=== PATIENT | female | born 1990 | race Caucasian/White ===

== ENCOUNTER 2023-07-22 17:51 | Emergency (ER) | payer OTHER, MEDICAID, SELFPAY ==
[2023-07-22 17:57] VITALS: BP 105/64; PULSE 86; RESP 18; TEMP 36.5; O2SAT 98; BMI 37.7
--- NOTE | 2023-07-22 18:30 | DI.CT.S_ITS ---
PROCEDURE: CT HEAD/BRAIN WO CON INDICATIONS: headache on lovenox TECHNIQUE: Noncontrast 4.5 mm thick angled axial sections acquired from the foramen magnum to the vertex, with coronal and sagittal reformats. For radiation dose reduction, the following was used: automated exposure control, adjustment of mA and/or kV according to patient size. COMPARISON: None. FINDINGS: CSF spaces: Basal cisterns are patent. No extra-axial fluid collections. Ventricles are normal in size and shape. Brain: No midline shift. No intracranial masses or hemorrhage. Mir-white matter interface is normal. Skull and face: Calvarium and visualized facial bones are intact, without suspicious lesions. Sinuses: Visualized sinuses and mastoids are clear. IMPRESSION: No intracranial hemorrhage or other acute intracranial abnormality. Dictated by: Roque Mcclain M.D. on 07/22/2023 at 19:02 Approved by: Roque Mcclain M.D. on 07/22/2023 at 19:05
--- NOTE | 2023-07-22 18:36 | ED.RECABL ---
HPI - Recheck/Abnormal Lab/Rx General Chief Complaint: Recheck/Abnormal Lab/Rx Stated Complaint: lipidema treatment in [place] follow up Time Seen by Provider: 07/22/23 18:02 Source: patient Mode of arrival: Ambulatory History of Present Illness HPI narrative: Patient 33-year-old female history of an arrhythmia on atenolol presents today with mild headache and wanting her blood rechecked. 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 She went to [place] to have liposuction a special liposuction was done last week on July 15. She then had a complication with bleeding afterwards requiring a blood transfusion. She reports that she had a CT. During that time she had a severe headache as well. She was sent home with Lovenox injections which she was told to take 2 hours before she got on the plane and then for a couple days after. This morning she took another injection and then had a headache no nausea no vomiting no numbness no tingling or weakness. She reports that the headache has slowly improved since. She is taking cephalosporin antibiotic he denies any fever she did short of breath with exertion. Related Data Home Medications Medication Instructions Recorded Confirmed cefuroxime axetil 500 mg tablet 500 mg PO BID 07/22/23 07/22/23 Allergies Allergy/AdvReac Type Severity Reaction Status Date / Time No Known Drug Allergies Allergy Verified 07/22/23 17:57 Review of Systems Review of Systems ROS Unobtainable: All systems reviewed & are unremarkable except as noted in HPI and below Patient History Social History Smoking Status: Current every day smoker Smoking Status: Current every day smoker tobacco type: vaping Substance Use Type: does not use Exam Initial Vital Signs Initial Vital Signs: Vital Signs Temperature 97.7 F 07/22/23 17:57 Pulse Rate 86 07/22/23 17:57 Respiratory Rate 18 07/22/23 17:57 Blood Pressure 105/64 07/22/23 17:57 Pulse Oximetry 98 07/22/23 17:57 Oxygen Delivery Method Room Air 07/22/23 17:57 GENERAL: Alert well-appearing 33-year-old female mildly pale HEENT: Head atraumatic,EOMI, pupils reactive, face symmetric, moist mucous membranes CARDIOVASCULAR: Regular rate and rhythm without murmurs, rubs or gallops. RESPIRATORY: Breath sounds equal bilaterally, no wheezes rales or rhonchi. ABDOMEN: Soft, nontender. Normoactive bowel sounds all 4 quadrants. No guarding or rebound. EXTREMITIES: Normal range of motion, no clubbing or edema. Neurovascularly intact NEUROLOGICAL: Alert and oriented x4.Normal gait and speech. Cranial nerves II through XII grossly intact. SKIN: Small incision sites on lower extremities significant contusion more on left than right specifically the left buttock. Course Orders Ordered: ED Orders 07/22/23 18:30 CT head/brain wo con Stat 07/22/23 18:47 CBC Auto Diff [Complete Blood Count AUTO DIFF] Stat CMP [Comprehensive Metabolic Panel] Stat 07/22/23 19:10 Urine Microscopic Stat Vital Signs Vital signs: Vital Signs - 8 hr 07/22/23 17:57 07/22/23 19:30 Temperature 97.7 F Pulse Rate 86 77 Respiratory Rate 18 18 Blood Pressure 105/64 106/58 L Pulse Oximetry 98 100 Oxygen Delivery Method Room Air Room Air MDM - Recheck/Abnormal Lab/Rx Lab Data 07/22/23 18:47 07/22/23 18:47 Labs: Lab Results 07/22/23 07/22/23 07/22/23 Range/Units 18:47 18:47 19:10 WBC 11.8 H (4.5-11.0) X10^3/uL RBC 2.90 L (4.0-5.2) X10^6/uL Hgb 9.1 L (12.0-16.0) g/dL Hct 26.1 L (36-46) % MCV 89.9 (80-100) fL MCH 31.4 (26-34) PG MCHC 34.9 (30-36) % RDW 14.1 (11.6-14.8) % Plt Count 433 H (150-400) X10^3/uL Neut % (Auto) 73.9 (50-75) % Lymph % (Auto) 18.1 L (25-40) % [place] % (Auto) 5.8 (3-14) % Eos % (Auto) 1.4 L (2-4) % Baso % (Auto) 0.8 (0-2) % Neut # (Auto) 8700 H (2838-2355) /uL Lymph # (Auto) 2100 (1153-2218) /uL Crawford # (Auto) 700 (0-900) /uL Eos # (Auto) 200 (0-450) /uL Baso # (Auto) 100 (0-100) /uL Sodium 135 L (137-145) mmol/L Potassium 4.2 (3.4-5.1) mmol/L Chloride 104 (98-107) mmol/L Carbon Dioxide 29 (22-32) mmol/L BUN 11 (7-17) mg/dL Creatinine 0.48 L (0.52-1.04) mg/dL Estimated GFR > 60 (>60) mL/min BUN/Creatinine Ratio 22.9 H (6-22) Glucose 95 (70-100) mg/dL Calcium 8.5 (8.4-10.2) mg/dL Total Bilirubin 1.6 H (0.2-1.3) mg/dL AST 24 (14-36) IU/L ALT 24 (<35) IU/L Alkaline Phosphatase 50 (38-126) U/L Total Protein 6.4 (6.3-8.2) g/dL Albumin 3.4 L (3.5-5.0) g/dL Globulin 3.0 (1.7-4.1) g/dL Albumin/Globulin Ratio 1.1 (1.0-2.8) Urine RBC 30-100/hpf H (0-5/HPF) Urine WBC 0-1/hpf (0-5/HPF) Ur Squamous Epith Cells 0-1 /hpf (0-5/HPF) Urine Bacteria Occasional (0-1) (None) Urine Mucus 1+ H (Negative) Ur Culture Indicated? Cult not indicated Point of Care Testing Test Results Negative Urine Dip Bedside Urine Glucose Negative Bedside Urine Bilirubin - Negative Bedside Urine Ketone - Negative Urine Specific [place] 1.015 Bedside Urine Occult Blood +++ Bedside Urine pH 6 Bedside Urine Protein - Negative Bedside Urine Urobilinogen - Negative Bedside Urine Nitrite - Negative Bedside Urine Leukocytes - Negative Esterase Imaging Data CT scan - head: Radiologist's Impression: PROCEDURE:? CT HEAD/BRAIN WO CON ? INDICATIONS:? headache on lovenox ? TECHNIQUE:? Noncontrast 4.5 mm thick angled axial sections acquired from the foramen magnum to the vertex, with coronal and sagittal reformats.? For radiation dose reduction, the following was used:? automated exposure control, adjustment of mA and/or kV according to patient size.? ? COMPARISON:? None. ? FINDINGS:? ? CSF spaces:? Basal cisterns are patent.? No extra-axial fluid collections.? Ventricles are normal in size and shape.? ? Brain:? No midline shift.? No intracranial masses or hemorrhage.? Mir-white matter interface is normal.? ? Skull and face:? Calvarium and visualized facial bones are intact, without suspicious lesions.? ? Sinuses:? Visualized sinuses and mastoids are clear.? ? IMPRESSION:? No intracranial hemorrhage or other acute intracranial abnormality. ? ? Dictated by: Roque Mcclain M.D. on 07/22/2023 at 19:02 ? MDM Narrative Medical decision making narrative: Patient 33-year-old female presents today concern for possible anemia. She had liposuction in [place] this is apparently her 2nd liposuction. He did have episode of anemia requiring blood transfusion afterwards. She 68 minimal symptoms she reports mild shortness of breath with exertion but does not sound bad. She is been taking Lovenox shots despite anemia she took 1 2 hours before she border the airplane she took 1 this morning she is continue to take him. Although pulmonary embolism still possible I think less likely. Blood work has been reviewed no anemia she reports that her previous hemoglobin was about 8.4 it is now 9.1. Electrolytes are stable no clinical significant abnormalities. CT head did not show any intracranial hemorrhage she was having headaches off and on but no nausea vomiting or weakness. At this time urinalysis is also negative she is not having any fever no sign of infection. Recommend outpatient follow-up. Discharge Plan Departure Patient Disposition: Home Clinical Impression: Anemia, Headache Instructions: Anemia, DI for Headache Activity Restrictions/Additional Instructions: *You have been diagnosed with anemia and headache *What to do: At this time blood levels are stable. It will take a couple weeks to be back to normal. Continue to follow-up with PCP. *Continue to take medications as directed *Follow up with your primary care provider in 2-3 days or call [phone] *Return to ER if you should have increasing chest pain shortness of breath fever or any new, worsening or concerning symptoms Prescriptions: No Action cefuroxime axetil 500 mg Tablet 500 mg PO BID Stand Alone Forms: Patient Portal/API
[2023-07-22 19:05] LABS: Add Manual Diff / Slide Review NO; Basophils Absolute Auto 100 /uL (0-100); Basophils Percent Auto 0.8 % (0-2); Eosinophils Absolute Auto 200 /uL (0-450); Eosinophils Percent Auto 1.4 % (2-4); Hematocrit 26.1 % (36-46); Hemoglobin 9.1 g/dL (12.0-16.0); Lymphocytes Absolute Auto 2100 /uL (1100-4500); Lymphocytes Percent Auto 18.1 % (25-40); Mean Corpuscular HGB Conc 34.9 % (30-36); Mean Corpuscular Hemoglobin 31.4 PG (26-34); Mean Corpuscular Volume 89.9 fL (80-100); Monocytes Absolute Auto 700 /uL (0-900); Monocytes Percent Auto 5.8 % (3-14); Neutrophils Absolute Auto 8700 /uL (1500-7000); Neutrophils Percent Auto 73.9 % (50-75); Platelet Count 433 X10^3/uL (150-400); Red Cell Distribution Width 14.1 % (11.6-14.8); White Blood Cell Count 11.8 X10^3/uL (4.5-11.0)
[2023-07-22 19:18] LABS: Alanine Aminotransferase 24 IU/L (<35); Albumin 3.4 g/dL (3.5-5.0); Albumin Globulin Ratio 1.1 (1.0-2.8); Alkaline Phosphatase 50 U/L (38-126); Aspartate Aminotransferase 24 IU/L (14-36); BUN Creatinine Ratio 22.9 (6-22); Bilirubin Total 1.6 mg/dL (0.2-1.3); Blood Urea Nitrogen 11 mg/dL (7-17); Calcium 8.5 mg/dL (8.4-10.2); Carbon Dioxide 29 mmol/L (22-32); Chloride 104 mmol/L (98-107); Estimated Glomerular Filt Rate > 60 mL/min (>60); Glucose 95 mg/dL (70-100); HEMOLYSIS 23 (0-50); Potassium 4.2 mmol/L (3.4-5.1); Sodium 135 mmol/L (137-145); Total Protein 6.4 g/dL (6.3-8.2)
[2023-07-22 19:30] VITALS: BP 106/58; PULSE 77; RESP 18; O2SAT 100
[2023-07-22 20:48] LABS: Bacteria Urine Occasional (0-1); Culture Indicated Urine Cult Not Indicated; Mucus Urine 1+ (Negative); RBC Urine 30-100/HPF (0-5/HPF); Squamous Epithelial Cell Urine 0-1 /HPF (0-5/HPF); WBC Urine 0-1/HPF (0-5/HPF)
== END 2023-07-22 20:11 | disposition home or self-care (01) ==
PROVIDERS: Emergency Provider Emergency Medicine
DX: D64.9 Anemia, unspecified (principal); R51.9 Headache, unspecified
CPT/HCPCS: 36415; 70450; 80053; 81003; 81015; 81025; 85025; 99283; 99284